=== PATIENT | male | born 1965 | race Hispanic/Latino ===

== ENCOUNTER 2020-02-12 12:05 | Day surgery (SDC) | payer SELFPAY ==
[2020-02-12] MEDS ORDERED: Rocuronium Bromide 10 MG/ML (10ML VIAL) ONE (12:06)
[2020-02-12] MEDS ORDERED: Dexamethasone 20 MG/5 ML VIAL ONE (12:06)
[2020-02-12] MEDS ORDERED: Ondansetron PF 4 MG/2 ML Vial ONE (12:06)
[2020-02-12] MEDS ORDERED: Glycopyrrolate 0.2 MG/ML 5 ML SYRINGE ONE (12:06)
[2020-02-12] MEDS ORDERED: Lidocaine 1% PF 5 ML VIAL ONE (12:06)
[2020-02-12] MEDS ORDERED: PROPOFOL 200 MG/20 ML VIAL ONE (12:06)
[2020-02-12] MEDS ORDERED: Succinylcholine Chloride 20 MG/ML 10 ml SYRINGE FS ONE (12:06)
[2020-02-12] MEDS ORDERED: Meropenem 2 GM, Admixture Fee 1 EACH in Sodium Chloride 0.9% 100 ML IVPB SCH (12:15)
--- NOTE | 2020-02-12 12:38 | HP ---
CHIEF COMPLAINT: Abdominal pain. HISTORY OF PRESENT ILLNESS: Mr. Mason Velasquez is a 54-year-old man who had sudden onset of nausea and vomiting yesterday morning after drinking a soda. The nausea and vomiting persisted through the day and then he developed abdominal pain which was central and then localized in the right lower quadrant. He did not have any fevers or chills, but the pain was unbearable and he was unable to sleep. It was worse with activity and when he had to vomit. He denies hematemesis or coffee-grounds emesis. He went to his local emergency room in [place] and was diagnosed with acute appendicitis by CT and transferred here for further care. PAST MEDICAL HISTORY: None. SURGICAL HISTORY: None. FAMILY HISTORY: None. MEDICATIONS: None. ALLERGIES: NONE. LABORATORY DATA: White count was elevated at 17.2 with a left shift. Electrolytes were unremarkable. Bilirubin is mildly elevated at 1.5. CT images are reviewed and I agree with the written report. The patient has an appendicolith and stranding and inflammation and dilation of the appendix consistent with acute appendicitis. There is a small focus of gas in or near the tip of the appendix. It is not clear whether this is intraluminal or extraluminal; however. No other acute changes are noted. REVIEW OF SYSTEMS: Ten system review of systems is negative except per HPI. PHYSICAL EXAMINATION: VITAL SIGNS: The patient is afebrile. Vital signs unremarkable. GENERAL: Reveals a healthy-appearing man, in no acute distress. He is not flushed or toxic in appearance. He is not jaundiced or icteric. HEENT: Unremarkable. NECK: Supple without lymphadenopathy or thyroid nodules. He does have amblyopia. HEART: Regular in its rate and rhythm without murmurs, rubs, or gallops. LUNGS: Clear to auscultation bilaterally. ABDOMEN: Soft and nondistended. No palpable masses or hernias. Very tender to palpation in the right lower quadrant with referred pain to the right lower quadrant with palpation of the left lower quadrant, he exhibits some voluntary guarding, but does not have rigidity. He was not tested for rebound due to his severe pain. EXTREMITIES: Warm, well perfused without edema. NEURO: No focal deficits. PSYCHIATRIC: Alert oriented and appropriate. Conversing fairly well without an speaking unit assembler and fluently in [place]ese with the assistance of an speaking unit assembler. ASSESSMENT: Acute appendicitis. PLAN: Laparoscopic appendectomy. The procedure and its inherent risks were discussed with the patient using a [place]ese research program intern. These risks include, but are not limited to, bleeding, infection, risks of anesthesia, damage to nearby structures including bowel, blood vessels and bladder, need for open surgery, need for other procedures. He understands and accepts these risks and wishes to proceed. Meropenem has been ordered, and he understands that if the appendix is found to be perforated, he will need to be admitted postoperatively for IV antibiotics. Job ID: [id number] MTDD
[2020-02-12] MEDS ORDERED: Lidocaine 1% w/Epinephrine 1:100K 20 ML VIAL ONE (13:00)
[2020-02-12] MEDS ORDERED: Bupivacaine 0.25% HCL 30 ML VIAL ONE (13:00)
[2020-02-12] MEDS ORDERED: Fentanyl 100 MCG/2 ML VIAL ONE ×2 (13:06→15:36)
[2020-02-12] MEDS ORDERED: Ondansetron HCl/PF 4 MG/2 ML Vial IVP PRN (14:35)
[2020-02-12] MEDS ORDERED: Meperidine HCl/PF 25 MG/ML VIAL SLOW IVP PRN (14:35)
[2020-02-12] MEDS ORDERED: Promethazine HCl 25 MG/ML VIAL IM PRN (14:35)
[2020-02-12] MEDS ORDERED: Promethazine HCl 25 MG/ML VIAL SLOW IVP PRN (14:35)
[2020-02-12] MEDS ORDERED: HYDROmorphone 2 MG/ML VIAL SLOW IVP PRN (14:35)
[2020-02-12] MEDS ORDERED: Ketorolac Tromethamine 30 MG/ML VIAL IVP PRN (14:35)
[2020-02-12] MEDS ORDERED: Morphine 4 MG/ML VIAL ONE (15:36)
[2020-02-12] MEDS ORDERED: HYDROcodone/Acetaminophen 5/325 mg Tablet ONE (17:55)
--- NOTE | 2020-02-13 07:39 | PDOC.OP ---
Operative Note - Operative Note Operative Note: PROCEDURE: Laparoscopic appendectomy. SURGEON: Ethan Mosley M.D. DATE OF PROCEDURE: 02/12/2020 PREOPERATIVE DIAGNOSIS: Appendicitis. POSTOPERATIVE DIAGNOSIS: Appendicitis. HISTORY: 54-year-old man who presented with signs and symptoms concerning for appendicitis. CT scan showed evidence of acute appendicitis and recommendation was made to proceed to the operating room for laparoscopic appendectomy. FINDINGS: Inflamed and dilated appendix without evidence of perforation or periappendiceal abscess. Large fecalith at the base of the appendix. DESCRIPTION OF PROCEDURE: After informed consent was obtained and appropriate antibiotics continued, the patient was taken to the operating room and placed in the supine position and general endotracheal anesthesia was administered. The bladder was decompressed with a Negrete catheter and the abdomen was prepped and draped in the standard sterile fashion. Local anesthesia was infused to the skin and subcutaneous tissues superior to the umbilicus. A transverse skin incision was made and a Veress needle placed into the abdominal cavity and carbon dioxide gas insufflated without difficulty. Opening pressure was less than 5. Carbon dioxide gas was insufflated to an intra-abdominal pressure 15 and the patient tolerated this well. The Veress needle was withdrawn and a [place] port advanced under direct laparoscopic vision into the abdominal cavity. Two additional ports were placed in the suprapubic and left lateral abdomen under direct laparoscopic vision after local anesthesia was infused at these sites. There were no significant adhesions. The appendix was identified and appeared inflamed but not perforated. A plane was developed between the appendix and the terminal ileum and the inflamed tip was elevated. The appendix was grasped by the mesoappendix and elevated and the appendix mobilized off of the retrocecal tissues. The mesoappendix was then sequentially ligated and divided down to the base of the appendix, which was normal in appearance and was clearly seen to be at the confluence of the tenia. There was a large fecalith palpable and visible in the base of the appendix just distal to the confluence of the tenia but there was enough space to place an Endoloop below this fecalith. Two Endoloops were placed around the base of the appendix, one below and one above the fecalith and the appendix was divided between these Endoloops and placed into an EndoCatch bag. The fecalith was removed from the appendiceal stump lumen and placed into the bag with the appendix. The suprapubic trocar was then replaced and the operative site was easily irrigated to clear. The suprapubic trocar was removed and the fascia closed under direct laparoscopic vision with a 0 Vicryl suture on a GraNee needle with excellent technical result. The left lateral trocar was then removed and hemostasis verified. Carbon dioxide gas was desufflated through the umbilical trocar which was then removed. Due to the patient's thin body habitus the fascia at the umbilicus was visible and this was reapproximated with a 0 Vicryl suture on a UR 6 needle with excellent technical result. The skin incisions were irrigated and additional local anesthesia infused at each site. The skin was closed with 4-0 subcuticular Monocryl sutures and Dermabond dressings were placed. The patient was extubated and taken to the recovery room in good condition. Estimated blood loss was minimal. There were no complications. SPECIMEN: Appendix.
== END 2020-02-12 18:54 | disposition home or self-care (01) ==
LOC: SDC 12:05
PROVIDERS: ATTEND Surgery
PROC: 0DTJ4ZZ Resection of Appendix, Percutaneous Endoscopic Approach (ICD-10-PCS; principal; 2020-02-12)
DX: K35.80 Unspecified acute appendicitis (principal); F17.200 Nicotine dependence, unspecified, uncomplicated
CPT/HCPCS: 88304; J1100; J2001; J2185; J2270; J2405; J2704; J3010; J3490; S0020